=== PATIENT | female | born 1980 | race American Indian/Alaskan Native ===

== ENCOUNTER 2017-09-15 01:39 | Emergency (ER) | payer OTHER ==
[~2017-09-15] VITALS: Ht 165.1 cm; Wt 81.7 kg
[~2017-09-15 01:39] MED LIST: Citalopram HBr40 MG PO
[2017-09-15] MEDS ORDERED: Ultram50 MG PO (02:57)
[2018-06-19] MEDS ORDERED: IBUP800 PO (19:46)
[2018-06-19] MEDS ORDERED: Norco 5-325 Ta1 EACH PO (19:46)
== END 2017-09-15 03:03 | disposition home or self-care (01) ==
LOC: ER 01:39
DX: M25.511 Pain in right shoulder (principal); Z79.899 Other long term (current) drug therapy
CPT/HCPCS: 73030; 99283

== ENCOUNTER → 2017-09-24 | Outpatient (CLI) | payer OTHER ==
[~2017-09-24] MED LIST changes: +IBUP800 PO; +Norco 5-325 Ta1 EACH PO; +Robaxin500 MG PO; +Ultram50 MG PO
[2017-09-24 16:12] LABS: Test Name OXYS
== END ==
LOC: LAB 15:00 → LAB SHORT 15:00
PROVIDERS: Student in an Organized Health Care Education/Training Program
DX: Z51.81 Encounter for therapeutic drug level monitoring (principal); Z79.899 Other long term (current) drug therapy

== ENCOUNTER 2017-09-29 17:39 | Emergency (ER) | payer OTHER ==
[~2017-09-29] VITALS: Ht 154.9 cm; Wt 108.9 kg
[~2017-09-29 17:39] MED LIST changes: -IBUP800 PO; -Norco 5-325 Ta1 EACH PO; -Robaxin500 MG PO
[2017-09-29] MEDS ORDERED: Ultram50 MG PO (19:07)
[2017-09-29] MEDS ORDERED: Robaxin500 MG PO (19:09)
[2018-06-19] MEDS ORDERED: Norco 5-325 Ta1 EACH PO (19:46)
[2018-06-19] MEDS ORDERED: IBUP800 PO (19:46)
== END 2017-09-29 19:12 | disposition home or self-care (01) ==
LOC: ER 17:39
DX: M25.511 Pain in right shoulder (principal); Z79.899 Other long term (current) drug therapy
CPT/HCPCS: 73030; 99283; J1885

== ENCOUNTER 2018-09-07 21:39 | Emergency (ER) | payer OTHER ==
[~2018-09-07] VITALS: Ht 154.9 cm; Wt 108.9 kg
[~2018-09-07 21:39] MED LIST changes: +IBUP800 PO; +Norco 5-325 Ta1 EACH PO; +Robaxin500 MG PO
[2018-09-07] MEDS ORDERED: CYCL10 PO (22:41)
[2018-09-07] MEDS ORDERED: KETO10 PO (22:41)
== END 2018-09-07 22:59 | disposition home or self-care (01) ==
LOC: ER 21:39
DX: S39.012A Strain of muscle, fascia and tendon of lower back, initial encounter (principal); W19.XXXA Unspecified fall, initial encounter; Z79.899 Other long term (current) drug therapy
CPT/HCPCS: 96372; 99283-25; J1885

== ENCOUNTER 2019-02-07 23:06 | Emergency (ER) | payer OTHER ==
[~2019-02-07] VITALS: Ht 154.9 cm; Wt 113.4 kg
[~2019-02-07 23:06] MED LIST changes: +CYCL10 PO; +KETO10 PO
[2019-02-07] MEDS ORDERED: HYDCHL25 PO (23:30)
[2019-02-07] MEDS ORDERED: HYDHCL25 PO (23:31)
== END 2019-02-08 00:05 | disposition home or self-care (01) ==
LOC: ER 23:06
DX: S46.911A Strain of unspecified muscle, fascia and tendon at shoulder and upper arm level, right arm, initial encounter (principal); S96.911A Strain of unspecified muscle and tendon at ankle and foot level, right foot, initial encounter; S93.401A Sprain of unspecified ligament of right ankle, initial encounter; Z79.899 Other long term (current) drug therapy; W19.XXXA Unspecified fall, initial encounter
CPT/HCPCS: 73030; 73610; 99283-25; A9270

== ENCOUNTER 2019-05-07 11:59 | Emergency (ER) | payer OTHER ==
[~2019-05-07] VITALS: Ht 154.9 cm; Wt 117.9 kg
[~2019-05-07 11:59] MED LIST changes: +HYDCHL25 PO; +HYDHCL25 PO
[2019-05-07 15:57] LABS: BASOPHILS ABSOLUTE AUTO 0.05 K/mm3 (0.00-0.23); BASOPHILS PERCENT AUTO 0 % (0-2); EOSINOPHILS ABSOLUTE AUTO 0.11 K/mm3 (0.00-0.68); EOSINOPHILS PERCENT AUTO 1 % (0-6); Hematocrit 39.5 % (33.0-51.0); Hemoglobin 12.8 g/dL (11.5-16.0); IMMATURE GRAN ABSOLUTE AUTO 0.04 K/mm3 (0.00-0.10); IMMATURE GRAN PERCENT AUTO 0 % (0-1); LYMPHOCYTES ABSOLUTE AUTO 3.48 K/mm3 (0.84-5.20); LYMPHOCYTES PERCENT AUTO 31 % (21-46); MONOCYTES PERCENT AUTO 6 % (4-13); Mean Corpuscular HGB 27.6 pg (26.0-34.0); Mean Corpuscular HGB Conc 32.4 g/dL (31.5-36.5); Mean Corpuscular Volume 85 fL (80-100); Mean Platelet Volume 10.2 fL (9.1-12.4); NEUTROPHILS ABSOLUTE AUTO 6.79 K/mm3 (1.96-9.15); NEUTROPHILS PERCENT AUTO 61 % (41-73); Platelet Count 312 K/mm3 (150-400); RDW Coefficient Variation 14.2 % (11.7-14.2); RDW Standard Deviation 43.9 fL (35.1-46.3); Red Blood Cell Count 4.64 M/mm3 (3.80-5.20); White Blood Cell Count 11.17 K/mm3 (4.00-11.30)
[2019-05-07 16:07] LABS: Source, Urine Clean Catch
[2019-05-07 16:10] LABS: Appearance, Urine Hazy (Clear); Bilirubin, Urine Neg (Neg); Blood, Urine Neg (Neg); Color, Urine Yellow (P-Yellow); Glucose Qualitative, Urine Neg (Neg); Ketones, Urine 1+ (Neg); Leukocyte Esterase, Urine 1+ (Neg); Nitrite, Urine Neg (Neg); Protein, Urine 2+ (Neg); Urobilinogen, Urine 3+ (Normal); pH, Urine 6.5 (5.0-8.0)
[2019-05-07 16:20] LABS: Alanine Aminotransfer (ALT/SGP 30 U/L (12-78); Albumin, Blood 3.5 g/dL (3.4-5.0); Alk Phos 47 U/L (50-136); Anion Gap 7 mmol/L (6-16); Aspartate Aminotrans (AST/SGOT 17 U/L (12-37); Bilirubin, Total 0.7 mg/dL (0.1-1.0); Blood Urea Nitrogen 10 mg/dL (8-24); Bun/Creatinine Ratio 14.2 (12.0-20.0); CO2, Blood 26 mmol/L (21-32); Calcium, Blood 8.2 mg/dL (8.5-10.1); Chloride, Blood 110 mmol/L (98-108); Creatinine, Blood 0.71 mg/dL (0.40-1.00); Globulin, Blood 3.4 g/dL (2.2-4.0); Glomerular Filtration Rate >60 (60-); Glucose, Blood 103 mg/dL (70-99); Potassium, Blood 3.2 mmol/L (3.5-5.5); Sodium, Blood 143 mmol/L (136-145); Total Protein, Blood 6.9 g/dL (6.4-8.2); Troponin I <0.015 ng/mL (0.000-0.040)
[2019-05-07 17:07] LABS: Free Thyroxine 0.94 ng/dL (0.70-1.60)
[2019-05-07 17:09] LABS: Thyroid Stimulating Hormone 0.769 uIU/mL (0.360-4.800)
[2019-05-07 17:17] LABS: Bacteria Mod /hpf; Red Blood Cells, Urine 0-2 /hpf (0-2); Squamous Epithelial Cells Many /hpf (Few)
== END 2019-05-07 17:51 | disposition home or self-care (01) ==
LOC: ER 11:59
PROVIDERS: Emergency Medicine
DX: I49.3 Ventricular premature depolarization (principal); F43.9 Reaction to severe stress, unspecified; E87.5 Hyperkalemia
CPT/HCPCS: 36415; 71046; 80053; 81001; 81025; 83735; 84439; 84443; 84484; 85025; 87086; 93005; 93010; 99285-25

== ENCOUNTER 2019-09-16 21:35 | Emergency (ER) | payer SELFPAY ==
[~2019-09-16] VITALS: Ht 154.9 cm; Wt 98.0 kg
[2019-09-16 22:13] LABS: BASOPHILS ABSOLUTE AUTO 0.06 K/mm3 (0.00-0.23); BASOPHILS PERCENT AUTO 0 % (0-2); EOSINOPHILS ABSOLUTE AUTO 0.16 K/mm3 (0.00-0.68); EOSINOPHILS PERCENT AUTO 1 % (0-6); Hematocrit 42.4 % (33.0-51.0); Hemoglobin 13.8 g/dL (11.5-16.0); IMMATURE GRAN ABSOLUTE AUTO 0.05 K/mm3 (0.00-0.10); IMMATURE GRAN PERCENT AUTO 0 % (0-1); LYMPHOCYTES ABSOLUTE AUTO 4.49 K/mm3 (0.84-5.20); LYMPHOCYTES PERCENT AUTO 33 % (21-46); MONOCYTES ABSOLUTE AUTO 0.73 K/mm3 (0.16-1.47); MONOCYTES PERCENT AUTO 5 % (4-13); Mean Corpuscular HGB 27.8 pg (26.0-34.0); Mean Corpuscular HGB Conc 32.5 g/dL (31.5-36.5); Mean Corpuscular Volume 85 fL (80-100); Mean Platelet Volume 9.9 fL (9.1-12.4); NEUTROPHILS ABSOLUTE AUTO 8.11 K/mm3 (1.96-9.15); NEUTROPHILS PERCENT AUTO 60 % (41-73); Platelet Count 357 K/mm3 (150-400); RDW Coefficient Variation 13.9 % (11.7-14.2); RDW Standard Deviation 43.2 fL (35.1-46.3); Red Blood Cell Count 4.97 M/mm3 (3.80-5.20)
[2019-09-16 22:33] LABS: Alanine Aminotransfer (ALT/SGP 33 U/L (12-78); Albumin, Blood 3.7 g/dL (3.4-5.0); Alk Phos 56 U/L (50-136); Anion Gap 9 mmol/L (6-16); Aspartate Aminotrans (AST/SGOT 19 U/L (12-37); Bilirubin, Total 0.5 mg/dL (0.1-1.0); Blood Urea Nitrogen 9 mg/dL (8-24); Bun/Creatinine Ratio 11.3 (12.0-20.0); CO2, Blood 24 mmol/L (21-32); Calcium, Blood 8.9 mg/dL (8.5-10.1); Chloride, Blood 107 mmol/L (98-108); Globulin, Blood 3.8 g/dL (2.2-4.0); Glomerular Filtration Rate >60 (60-); Glucose, Blood 84 mg/dL (70-99); Potassium, Blood 3.5 mmol/L (3.5-5.5); Sodium, Blood 140 mmol/L (136-145); Total Protein, Blood 7.5 g/dL (6.4-8.2); Troponin I <0.015 ng/mL (0.000-0.040)
== END 2019-09-17 02:05 | disposition home or self-care (01) ==
LOC: ER 21:35
PROVIDERS: Emergency Medicine
DX: I49.3 Ventricular premature depolarization (principal); F41.9 Anxiety disorder, unspecified; R07.9 Chest pain, unspecified; R20.2 Paresthesia of skin; F31.9 Bipolar disorder, unspecified; I10 Essential (primary) hypertension
CPT/HCPCS: 36415; 70450; 71046; 80053; 84484; 85025; 93005; 93010; 96374; 99285-25; J1885

== ENCOUNTER 2020-08-18 23:07 | Emergency (ER) | payer OTHER ==
[~2020-08-18] VITALS: Ht 154.9 cm; Wt 127.0 kg
== END 2020-08-19 00:56 | disposition home or self-care (01) ==
LOC: ER 23:07
DX: S89.92XA Unspecified injury of left lower leg, initial encounter (principal); Z79.899 Other long term (current) drug therapy; X50.1XXA Overexertion from prolonged static or awkward postures, initial encounter
CPT/HCPCS: 73562-LT; 96372; 99283-25; J1885